=== PATIENT | female | born 1995 | race Caucasian/White ===

== ENCOUNTER → 2024-06-06 14:46 | Outpatient (REF) | payer OTHER, SELFPAY | LOC: HWRAD 14:46 | PROVIDERS: ATTENDING PHYSICIAN Physician Assistant Surgical; FAMILY PHYSICIAN Family Medicine | DX: Z34.90 Encounter for supervision of normal pregnancy, unspecified, unspecified trimester (principal) | CPT/HCPCS: 76805 ==

== ENCOUNTER 2025-06-13 17:47 | Emergency (ER) | payer BC, SELFPAY ==
[2025-06-13 17:57] VITALS: BP 114/70
[2025-06-13 18:43] VITALS: BP 106/69
[2025-06-13 18:56] LABS: Hematocrit 34.1 % (37.0-47.0); Hemoglobin 11.4 g/dL (12.0-16.0); Mean Corp Hgb Conc. 33.4 g/dL (33.0-37.0); Mean Corpuscular Volume 83.6 fL (81.0-99.0); Nucleated Red Blood Cells % 0 %; Platelet Count 345 10^3/uL (130-400); Red Cell Dist. Width 13.8 % (11.5-14.5)
[2025-06-13 19:00] VITALS: BP 112/70
[2025-06-13 19:03] LABS: HCG, Serum Qualitative Screen Negative
--- NOTE | 2025-06-13 19:07 | ED.GENMED ---
History of Present Illness
General
Chief Complaint: Abdominal Symptoms
Source: patient
Time Seen by Provider: 06/13/25 18:54
History of Present Illness
History of Present Illness:
29-year-old female otherwise healthy presenting to the emergency department for evaluation of left upper abdominal pain (triage of left lower quadrant abdominal pain noted) which started on Tuesday, today not really much worse but had associated
persistent nausea and vomiting today which is ultimately what brought her in patient did go to her primary care provider today who thought patient's symptoms were related to gastritis and started her on famotidine which patient took yesterday and
today but without any relief. She did contact the primary care provider who recommended she come to the ED. other than the nausea and vomiting today there are no other associated symptoms. Patient's last menstrual period was on June 01.
Surgical history was noted for a done in October of this year. No other concerns presently.
Past History
Past History
ED Past Medical History: Psychiatric and Other (Kidney stone)
ED Past Surgical History: None
Social History
Tobacco: Non-smoker
Alcohol: Occasional
Drug: None
Personal: Single
Living: with family
Employment: Employed
Family History
Family History: Other (Noncontributory)
Review of Systems
Review of Systems
All Other Systems: ROS reviewed and negative except as documented in HPI and ROS
Phy Exam
Physical Exam
Physical Exam:
GENERAL: Alert , in no apparent distress
EYE: clear conjunctiva b/l
HEAD: NCAT
ENT: o/p clr, mmm.
CARDIAC: Regular rate and rhythm .
LUNGS: Clear breath sounds bilaterally, no acute respiratory distress, no wheezes/rales/rhonchi
ABDOMEN: Soft, left upper abdominal tenderness, no r/g, no cvat
NEUROLOGICAL: Alert and oriented
SKIN: Warm and dry, skin intact.
MUSCULOSKELETAL: well perfused.
PSYCH: Normal and appropriate interaction.
Scores
Heart Failure Risk
Heart Failure Risk Score: Not Applicable
Heart Score for Chest Pain Patients
STEMI patient?: Not applicable
Withdrawal Assessment of Alcohol
Withdrawal Assessment Completed?: Not applicable
Course
Orders/Labs/Results
Orders:
Orders
06/13/25 18:34
Test Result ONCE
06/13/25 18:43
CBC/With Diff [Complete Blood Count/With Diff] Urgent
CMP [Comprehensive Metabolic Panel] Urgent
HCG, Serum Qualitative Screen Urgent
Lipase Urgent
06/13/25 19:10
0.9% Sodium Chloride 1000 ml [Nss] 1,000 ml IV BOLUS
06/13/25 19:11
CT Abd/pelvis W Iv Cont Urgent
Comment:
Reason For Exam: Left upper abd pain
Abnormal Lab Results
06/13/25
18:43
RBC 4.08 L 10^6/uL
(4.20-5.40)
Hgb 11.4 L g/dL
(12.0-16.0)
Hct 34.1 L %
(37.0-47.0)
06/13/25 18:43
06/13/25 18:43
Vital Signs
Initial and Last Documented VS:
Initial Vital Signs
Temp Pulse Resp BP Pulse Ox
97.9 F 82 18 114/70 98
06/13/25 17:57 06/13/25 17:57 06/13/25 17:57 06/13/25 17:57 06/13/25 17:57
Last Documented Vital Signs
Temp Pulse Resp BP Pulse Ox
97.9 F 82 18 114/70 98
06/13/25 17:57 06/13/25 17:57 06/13/25 17:57 06/13/25 17:57 06/13/25 19:10
MDM/Problems Addressed
Differential Diagnosis Includes:
GERD
Gastritis
Hiatal hernia
PUD
H.Pylori
Colitis
Diverticulitis
MDM/Problems Addressed:
29-year-old female presenting to the ER for evaluation of 5 days of abdominal pain, today with nausea and vomiting. No other symptoms presently. She declines anything for pain or nausea. Currently we will check labs including test.
Imaging pending this work up.
*Radiology
Radiology exam reviewed: radiology read reviewed
*Pulse Oximetry
SaO2: 98
Oxygen Mode of Delivery: Room air
Patient hypoxic: no
*Critical Care Note
Total Time (30-74mins, 75-104mins- exclusive of procedures): Not Applicable
Patient Management
Escalation/DeEscalation of care consider admission/obs:
CT scan with no acute inflammatory changes within the abdomen or pelvis. There is colonic fecal burden noted, patient did states she had a history of some in her constipation. Advise she can try some [id number] stool softener or laxative to
see if this helps with symptoms. Prescription for Zofran sent to pharmacy. At this time patient stable for discharge home and aware of return precautions to the ER. She can continue the famotidine that was prescribed to her by primary care
provider
ED Attending Note
-
Portions of this chart may have been created with voice recognition software.� Occasional wrong word or��sound alike� substitutions may have occurred due to the inherent limitations of voice recognition software.
Discharge Plan
Departure
Patient Disposition: Home (Routine Discharge)
Date of Disposition: 06/13/25
Time of Disposition: 20:53
Patient with high blood pressure during this ER visit?: No
Discharge Problem:
Abdominal pain, Nausea and vomiting
Instructions: Abdominal Pain
Prescriptions:
New
ondansetron 4 mg tablet,disintegrating
4 mg PO TIDPRN PRN (Reason: nausea/vomiting) Qty: 10 0RF
No Action
dextroamphetamine-amphetamine [Adderall] 5 MG tablet
10 mg PO DAILY
bupropion HCl 150 MG tablet extended release 24 hr
150 mg PO DAILY
Referrals:
Shaneka Bailey MD [Family Provider, Family Practice]
Interventions
Interventions:
*Risk Screen - Suicide Last Done: 06/13/25 18:03
*Neglect/Abuse Screening Last Done: 06/13/25 18:03
Discharge Date and Time
Print Language: FRISIAN
[2025-06-13 19:13] LABS: ALT (SGPT) 13 U/L (0-35); AST (SGOT) 23 U/L (14-36); Albumin 4.5 g/dl (3.5-5.0); Alkaline Phosphatase 89 U/L (38-126); Blood Urea Nitrogen 16 mg/dl (7-17); Calcium 9.5 mg/dl (8.4-10.2); Carbon Dioxide 25 mmol/L (22-30); Chloride 103 mmol/L (98-107); Glucose 87 mg/dl (70-99); Lipase 67 U/L (23-300); Potassium 4.1 mmol/L (3.5-5.1); Sodium 139 mmol/L (135-145); Total Protein 7.7 g/dl (6.3-8.2); eGFR > 60.00
[2025-06-13] MEDS: NSS 1000 IV (19:20)
[2025-06-13 20:00] VITALS: BP 101/71
== END 2025-06-13 21:00 | disposition home or self-care (01) ==
LOC: EMR 17:47
PROVIDERS: Emergency Medicine; EMERGENCY PHYSICIAN Emergency Medicine; FAMILY PHYSICIAN Family Medicine
DX: R10.12 Left upper quadrant pain (principal); R11.2 Nausea with vomiting, unspecified
CPT/HCPCS: 96360; 99284; 74177; 80053; 83690; 84703; 85025; Q9967